=== PATIENT | male | born 1995 | race Hispanic/Latino ===

== ENCOUNTER 2018-07-03 16:30 | Emergency (ER) | payer BC ==
[2018-07-03 16:50] VITALS: BMI 40.0
[2018-07-03 16:51] VITALS: BP 130/78; PULSE 74; RESP 18; TEMP 98; O2SAT 98
--- NOTE | 2018-07-03 17:16 | ED PDOC ---
Arrival/HPI - General Chief Complaint: Eye Problem Time Seen by Provider: 07/03/18 16:36 Historian: Patient - History of Present Illness Narrative History of Present Illness (Text): 07/03/18 17:17 A 22 year old male with no significant past medical history, who presents to the ED for right eye pain after spilling hot soup in his right eye this morning. Patient explains he works at a [employer] and was getting soup ready when he acci dentally spilled it in his right eye and on his right arm while the soup was very hot. Patient reports sustaining a burn on his right arm and some blurriness in the affected eye, but denies any loss of vision. Patient also denies any fevers, chills, headache, dizziness, chest pain, shortness of breath, dyspnea on exertion, cough, abdominal pain, nausea, vomiting, diarrhea, back pain, neck pain, urinary/bowel changes, or any other complaints. Symptom Onset: Gradual Symptom Course: Unchanged Quality: Burning Activities at Onset: Light Context: Work Past Medical History - Provider Review Nursing Documentation Reviewed: Yes - Travel History Have you recently traveled outside [place] w/in the past 3 mons?: No - Infectious Disease Hx of Infectious Diseases: None - Endocrine/Metabolic Hx Hypothyroidism: Yes - Psychiatric Hx Substance Use: No - Anesthesia Hx Anesthesia: No Family/Social History - Physician Review Nursing Documentation Reviewed: Yes Family/Social History: Unknown Family HX Smoking Status: Never Smoked Hx Alcohol Use: No Hx Substance Use: No Allergies/Home Meds Allergies/Adverse Reactions: Allergies No Known Allergies Allergy (Verified 07/03/18 16:50) Home Medications: Home Meds Medication Instructions Recorded Confirmed Levothyroxine [Synthroid] 1 tab PO DAILY 07/03/18 07/03/18 Review of Systems - Physician Review All systems were reviewed & negative as marked: Yes - Review of Systems Constitutional: absent: Fatigue, Fevers Eyes: Vision Changes (blurry vision in right eye), Eye Pain (right eye pain) ENT: absent: Hearing Changes Respiratory: absent: SOB, Cough Cardiovascular: absent: Chest Pain Gastrointestinal: absent: Abdominal Pain, Nausea, Vomiting Genitourinary Male: absent: Dysuria, Hematuria Musculoskeletal: absent: Back Pain, Neck Pain Skin: absent: Rash Neurological: absent: Headache, Dizziness Endocrine: absent: Diaphoresis Hemo/Lymphatic: absent: Adenopathy Psychiatric: absent: Anxiety, Depression Physical Exam Vital Signs Reviewed: Yes Vital Signs Temp Pulse Resp BP Pulse Ox 07/03/18 16:51 98 F 74 18 130/78 98 Temperature: Afebrile Blood Pressure: Normal Pulse: Regular Respiratory Rate: Normal Appearance: Positive for: Well-Appearing, Non-Toxic, Comfortable Pain Distress: None Mental Status: Positive for: Alert and Oriented X 3 - Systems Exam Head: Present: Atraumatic, Normocephalic Pupils: Present: PERRL, Other (Visual acuity is 20/30 in left eye, and 20/40 in right eye) Extroacular Muscles: Present: EOMI Conjunctiva: Present: Other (corneal abrasion on RLQ of right eye) Respiratory/Chest: Present: Clear to Auscultation, Good Air Exchange. No: Respiratory Distress, Accessory Muscle Use Cardiovascular: Present: Regular Rate and Rhythm, Normal S1, S2. No: Murmurs Upper Extremity: Present: Normal Inspection. No: Cyanosis, Edema Neurological: Present: Speech Normal, Motor Func Grossly Intact, Normal Sensory Function Skin: Present: Warm, Dry, Normal Color. No: Rashes Psychiatric: Present: Alert, Oriented x 3, Normal Insight, Normal Concentration Medical Decision Making ED Course and Treatment: 07/03/18 17:28 Impression: 22 year old male who presents to the ED for right eye pain. Differential Diagnosis included but are not limited to: --Corneal Abrasion --Corneal Ulcer Plan: --Wood's Lamp Exam --Reassess and disposition Progress Notes: 07/06/18 18:00 Wood's lamp reveals corneal ulcer noted at the lower quadrant of the right quadrant of the eye. Patient and mother alerted to lesion and advised to avoid chemical irritants. He denies any previous use of contact lens. Scripts for ophthalmic eye drops given as well as encouragement to see the denture packer. Patient demonstrates understanding and will follow up. Opportunity for questions given and answered. She is stable for discharge. - Scribe Statement The provider has reviewed the documentation as recorded by the Chanell Sousa Provider Scribe Attestation: All medical record entries made by the Scribe were at my direction and personally dictated by me. I have reviewed the chart and agree that the record accurately reflects my personal performance of the history, physical exam, medical decision making, and the department course for this patient. I have also personally directed, reviewed, and agree with the discharge instructions and disposition. Disposition/Present on Arrival - Present on Arrival Any Indicators Present on Arrival: No History of DVT/PE: No History of Uncontrolled Diabetes: No Urinary Catheter: No History of Decub. Ulcer: No History Surgical Site Infection Following: None - Disposition Have Diagnosis and Disposition been Completed?: Yes Diagnosis: Corneal abrasion Disposition: HOME/ ROUTINE Disposition Time: 18:00 Patient Plan: Discharge Condition: STABLE Discharge Instructions (ExitCare): Corneal Abrasion (DC) Print Language: MONEGAS[place] Additional Instructions: All medical record entries made by the Scribe were at my direction and personally dictated by me. I have reviewed the chart and agree that the record accurately reflects my personal performance of the history, physical exam, medical decision making, and the department course for this patient. I have also personally directed, reviewed, and agree with the discharge instructions and disposition. Please follow up with Dr. Ann(denture packer) DO NOT go to work tonight Please continue to wash out your eye with water when you get home You may apply Neosporin to the under eye every 12 hours Prescriptions: Polymyxin/Trimethoprim Sulfate [Polytrim Ophth Soln] 10 ml OD Q4H #2 bottle Referrals: Lazaro Downey MD [Staff Provider] - Follow up with primary Forms: [facility] ([employer]), WORK NOTE
== END 2018-07-03 18:13 | disposition home or self-care (01) ==
LOC: ED 16:30
DX: S05.01XA Injury of conjunctiva and corneal abrasion without foreign body, right eye, initial encounter (principal); X58.XXXA Exposure to other specified factors, initial encounter; Y92.89 Other specified places as the place of occurrence of the external cause; Y99.0 Civilian activity done for income or pay